=== PATIENT | female | born 1990 | race Caucasian/White ===

== ENCOUNTER 2017-02-20 08:04 | Emergency (ER) | payer OTHER ==
[2017-02-20 09:07] LABS: URINE PH (Dip) POC 7.5 (5.0-8.5)
[2017-02-20 09:07] LABS: URINE BLOOD (Dip) POC 2+ (NEGATIVE); URINE GLUCOSE (Dip) POC Negative (NEGATIVE); URINE KETONES (Dip) POC Negative (NEGATIVE); URINE LEUKOCYTE EST (Dip) POC 1+ (NEGATIVE); URINE NITRITE (Dip) POC Negative (NEGATIVE); URINE TOTAL PROTEIN POC Negative (NEGATIVE)
[2017-02-20] MEDS: ACETAMINOPHEN 500 MG TAB PO (09:42)
[2017-02-20] MEDS: IBUPROFEN 800 MG TAB PO (09:43)
== END 2017-02-20 10:58 | disposition home or self-care (01) ==
LOC: FTE 08:04
DX: R50.9 Fever, unspecified (principal); R10.2 Pelvic and perineal pain; R05 Cough; R09.89 Other specified symptoms and signs involving the circulatory and respiratory systems
CPT/HCPCS: 76830; 76856; 81003; 99284-25